=== PATIENT | female | born 1955 | race Caucasian/White ===

== ENCOUNTER 2016-06-16 05:15 | Day surgery (SDC) | payer BC ==
[2016-06-13 14:49] LABS: BASOPHILS 0.4 % (0.0-2.0); EOSINOPHILS 2.6 % (0-7); HEMATOCRIT 39.1 % (36.0-48.0); HEMOGLOBIN 13.3 g/dL (12-16); IMMATURE GRANULOCYTES 0.1 % (0-5); LYMPHOCYTES 38.6 % (15-50); MCH 32.5 pg (26.0-34.0); MCV 95.6 fL (80.0-100.0); MEAN PLATELET VOLUME 9.3 fL (7.4-10.4); MONOCYTES 7.8 % (2-11); NEUTROPHILS 50.5 % (40-80); PLATELET COUNT 273 10x3/uL (130-400); RBC 4.09 10x6/uL (4.00-5.40); RDW 12.6 % (11.5-14.5); WBC 7.7 10x3/uL (4.8-10.8)
[2016-06-13 15:07] LABS: ANION GAP 16.5 mmol/L (8-16); CALCIUM 8.6 mg/dL (8.5-10.1); CARBON DIOXIDE 25.7 mmol/L (21.0-32.0); CREATININE - SERUM 0.9 mg/dL (0.6-1.3); POTASSIUM - SERUM 4.2 mmol/L (3.5-5.1)
[2016-06-16] VITALS (14 sets, daily range): BP systolic 132–156; BP diastolic 74–93; Ht 170.2 cm; Wt 79.5 kg
[~2016-06-16] VITALS: Ht 170.2 cm; Wt 79.5 kg
--- NOTE | ~2016-06-16 | OP ---
PATIENT NAME: LEWIS WALDRON MEDICAL RECORD: [id number] LOCATION:[id number] ADMISSION DATE: SURGEON: FRANKY PARK MD DATE OF OPERATION: 06/16/2016 PREOPERATIVE DIAGNOSES: 1. Gastroesophageal reflux disease. 2. Hiatal hernia. 3. Gallstones. 4. Hypertension. 5. Left neck skin tags. POSTOPERATIVE DIAGNOSES: 1. Gastroesophageal reflux disease. 2. Hiatal hernia. 3. Gallstones. 4. Hypertension. 5. Left neck skin tags. PROCEDURES: 1. Laparoscopic cholecystectomy. 2. Laparoscopic Maninder fundoplication with hiatal hernia repair. 3. Excision of left neck skin tags. SURGEON: Franky Park MD REPORT OF PROCEDURE: The patient's abdomen was prepped and draped in sterile fashion. A Veress needle was inserted in the left upper quadrant and abdomen was insufflated. An 11-mm Visiport trocar was inserted in the midline just above the umbilicus. An 11-mm trocar was placed in the left subcostal region. A 5-mm trocar was placed in the epigastrium, a 5-mm trocar was placed in the right lateral subcostal region and a 5-mm trocar was placed in the left lateral abdomen. We approached the gallbladder first, there was no sign of any inflammatory changes. The cystic duct and cystic artery were dissected free and these structures were clipped proximally and distally and ligated in standard fashion. The gallbladder was then taken off the liver bed using electrocautery and placed into an EndoCatch bag. We irrigated out the right upper quadrant and any bleeding from the liver bed was then treated with electrocautery. We then inserted a liver retractor and elevated the left lobe of the liver. The patient had moderate sized hiatal hernia with about 4-5 cm of the stomach in the chest. The lesser omentum was taken down using Harmonic scalpel and this dissection was continued to the right side of the right arturo. We dissected the tissue off the right side of the right arturo and entered the thoracic cavity, taking down the hernia sac. We continued this anteriorly and posteriorly as far as we could go. We then approached the greater curvature of the stomach and took down the short gastric using Harmonic scalpel. This dissection was continued all the way to the left side of the right arturo. We dissected the hernia sac off the left side of the right arturo and continued our dissection up into the thoracic cavity. We then freed up all the attachments around the esophagus until we had a 360 degree inspection of the esophagus. The hernia defect was then reapproximated with interrupted 0 Polydek times 3 with good approximation of the hiatal arturo. The stomach was then pulled in the posterior 360 degree wrap. The fundus of the stomach was then sutured around using interrupted 0 Polydek times 3. The top and the bottom suture incorporated a bite of the esophagus. The wrap appeared to be intact and did not appear to be too tight. The indwelling OG tube was OPERATIVE REPORT [id number] LEWIS WALDRON easily removed. The abdominal cavity was then irrigated out with normal saline and care was taken to make sure there was no sign of any active bleeding. The two 11 mm trocar site fascias were closed with interrupted 0 Vicryls using a Jeremy-Leonel suture passer device. The ports and insufflation were then removed and the gallbladder was taken out through the umbilicus. The subcutaneous tissues were infused with a total of 20 mL of 0.25% Marcaine with epinephrine and then closed with subcutaneous 5-0 Monocryl. We then prepped the patient's left neck and about 7 very small skin tags were treated with electrocautery. COMPLICATIONS: None. CONDITION: Stable. ANESTHESIA: General endotracheal and local. BLOOD LOSS: 30 mL. TRANSINT:[id number] Voice Confirmation ID: [id number] DOCUMENT ID: [id number] FRANKY PARK MD CC: HERO ORTIZ MD [id number] DICTATION DATE: 06/16/16 1010 INSURANCE APPRAISER: 06/16/16 1032 [facility] [address] [id number]
[~2016-06-16 05:15] MED LIST: BUPROPION XL150 MG PO; CALCIUM 500 + D1 TAB PO; LIPITOR20 MG PO; LOPRESSOR25 MG PO; MULTI-DAY VITAM1 TAB PO; OMEPRAZOLE40 MG PO; PROBIOTIC1 EAC1 PO; VICTOZA0.6 MG/0.1 SQ
--- NOTE | 2016-06-16 08:37 | NUR ---
STRAP UNDER BUTTOCKS DURING PROCEEDURE
--- NOTE | 2016-06-16 10:35 | NUR ---
PATIENT RECEIVED TO FLOOR FROM PACU. TRANSFERRED FROM STRETCHER TO BED. POSITIONED FOR COMFORT. VITAL SIGNS STABLE. FAMILY AT BEDSIDE. SIDE RAILS UP X2. BED IN LOW POSITION. CALL LIGHT IN REACH. YELLOW FALL BAND PLACED ON PATIENT.
--- NOTE | 2016-06-16 10:40 | NUR ---
DILAUDID LAW ENFORCEMENT INSTRUCTOR SET ACCORDING TO ORDERS. USE EXPLAINED. STATES UNDERSTANDING. BUTTON IN HAND. INCENTIVE SPIROMETER PROVIDED. WILL GO OVER TEACHING ONCE PATIENT MORE AWAKE. SCDS ON BILATERALLY. SIDE RAILS UP X2. BED IN LOW POSITION. CALL LIGHT IN REACH.
--- NOTE | 2016-06-16 11:20 | NUR ---
PATIENT RESTING QUIETLY WITH EYES CLOSED. RESPIRATIONS EVEN AND UNLABORED. VITAL SIGNS STABLE. SIDE RAILS UP X2. BED IN LOW POSITION. CALL LIGHT IN REACH.
--- NOTE | 2016-06-16 12:55 | NUR ---
PATIENT IN MID LEON POSITION RESTING QUIETLY WITH EYES CLOSED. RESPIRATIONS EVEN AND UNLABORED. VITAL SIGNS STABLE. SIDE RAILS UP X2. BED IN LOW POSITION. CALL LIGHT IN REACH. CALL LIGHT IN REACH.
--- NOTE | 2016-06-16 14:20 | NUR ---
PATIENT IN LOW LEON POSITION RESTING QUIETLY WITH EYES CLOSED. RESPIRATIONS EVEN AND UNLABORED. SIDE RAILS UP X2. BED IN LOW POSITION. CALL LIGHT IN REACH. VITAL SIGNS STABLE. GUEST AT BEDSIDE.
--- NOTE | 2016-06-16 16:29 | NUR ---
PATIENT REPOSITIONED IN BED. PILLOW PLACED BENEATH LEFT SIDE. WELL TOLERATED. SIDE RAILS UP X2. BED IN LOW POSITION. CALL LIGHT IN REACH.
--- NOTE | 2016-06-16 18:00 | NUR ---
ALERT IN BED. NO SIGNS OF DISTRESS NOTED. DENIES NEEDS. SIDE RAILS UP X2. BED IN LOW POSITION. CALL LIGHT IN REACH. TECHNICAL BUSINESS SYSTEMS ANALYST BUTTON IN REACH.
--- NOTE | 2016-06-16 19:15 | NUR ---
LYING IN BED AWAKE, NO ACUTE DISTRESS NOTED, DENIES NEEDS AT THIS TIME, SR'S UP, CL IN REACH, WILL MONITOR
--- NOTE | 2016-06-16 20:31 | NUR ---
VOIDED 1100 CC, C/O NAUSEA, PRN ZOFRAN GIVEN, TAB APPLIED TO NECK WOUNDS, DENIES OTHER NEEDS AT THIS TIME, CL IN REACH, WILL CONTINUE TO MONITOR
--- NOTE | 2016-06-16 21:42 | NUR ---
REGLAN GIVEN PER MAR, REPOSITIONED IN BED, ANGELA WELL, CL IN REACH
--- NOTE | 2016-06-16 23:40 | NUR ---
RESTING WITH EYES CLOSED, RESP WITH EASE, NO ACUTE DISTRESS NOTED, FALL PRECAUTIONS IN PLACE, CL IN REACH
[2016-06-17] VITALS: BP 152/87
--- NOTE | 2016-06-17 02:07 | NUR ---
NS HUNG PER MAR, ANGELA WELL, RESTING WITH EYES CLOSED, RESP WITH EASE, FALL PRECAUTIONS IN PLACE, CL IN REACH
[2016-06-17 04:00] VITALS: BP 145/80
[2016-06-17 06:23] LABS: BASOPHILS 0.2 % (0.0-2.0); EOSINOPHILS 0.5 % (0-7); HEMATOCRIT 37.1 % (36.0-48.0); HEMOGLOBIN 12.4 g/dL (12-16); IMMATURE GRANULOCYTES 0.2 % (0-5); LYMPHOCYTES 11.9 % (15-50); MCHC 33.4 g/dL (31.0-37.0); MCV 95.9 fL (80.0-100.0); MEAN PLATELET VOLUME 9.8 fL (7.4-10.4); MONOCYTES 7.6 % (2-11); NEUTROPHILS 79.6 % (40-80); PLATELET COUNT 247 10x3/uL (130-400); RBC 3.87 10x6/uL (4.00-5.40); RDW 12.4 % (11.5-14.5); WBC 11.7 10x3/uL (4.8-10.8)
[2016-06-17 06:38] LABS: CALC OSMOLALITY 273 mosm/kg (275-300); CALCIUM 8.7 mg/dL (8.5-10.1); CARBON DIOXIDE 27.2 mmol/L (21.0-32.0); CHLORIDE - SERUM 102 mmol/L (98-107); CREATININE - SERUM 0.7 mg/dL (0.6-1.3); GLUCOSE 135 mg/dL (74-106); POTASSIUM - SERUM 3.9 mmol/L (3.5-5.1); SODIUM 137 mmol/L (136-145); UREA NITROGEN 6 mg/dL (7-18); eGFR NON AFRICAN AMERICAN > 90 mL/min (90-120)
--- NOTE | 2016-06-17 07:10 | NUR ---
PATIENT RECEIVED ALERT IN LOW LEON POSITION. RESPIRATIONS EVEN AND UNLABORED. DENIES NEEDS. RATES PAIN 5/10. SIDE RAILS UP X2. BED IN LOW POSITION. CALL LIGHT AND REGISTER OF DEEDS BUTTON IN REACH. WILL CONTINUE TO MONITOR.
[2016-06-17 07:52] VITALS: BP 129/69
--- NOTE | 2016-06-17 09:03 | NUR ---
ALERT IN BED. SCHEDULED MEDICATION ADMINISTERED. DENIES NEEDS. SIDE RAILS UP X2. BED IN LOW POSITION. CALL LIGHT IN REACH.
[2016-06-17] MEDS ORDERED: DILAUDID2 MG PO (10:47)
[2016-06-17] MEDS ORDERED: REGLAN10 MG PO (10:48)
[2016-06-17] MEDS ORDERED: PHENERGAN25 M1 PO (10:48)
--- NOTE | 2016-06-17 12:04 | NUR ---
IV TO RIGHT FOREARM D/C WITH CATH TIP INTACT. SITE COVERED WITH GAUZE AND BANDAID. D/C TEACHING AND PAPER PRESCRIPTION FOR DILAUDID GIVEN. FAMILY AT BEDSIDE. STATES UNDERSTANDING. DENIES QUESTIONS.
--- NOTE | 2016-06-17 12:07 | NUR ---
PATIENT D/C HOME WITH FAMILY. TRANSFERRED DOWNSTAIRS VIA WHEELCHAIR WITH VOLUNTEER
== END 2016-06-17 12:08 | disposition home or self-care (01) ==
LOC: D.OPS 05:15 → D.PAN 07:30 → D.MS 10:23 → D.OPS 06-17 12:08
PROVIDERS: Surgery
DX: K44.9 Diaphragmatic hernia without obstruction or gangrene (principal); K21.9 Gastro-esophageal reflux disease without esophagitis; K80.80 Other cholelithiasis without obstruction; I10 Essential (primary) hypertension; E11.9 Type 2 diabetes mellitus without complications; L91.8 Other hypertrophic disorders of the skin